=== PATIENT | male | born 1965 | race Hispanic/Latino ===

== ENCOUNTER 2018-03-13 22:51 | Emergency (ER) | payer SELFPAY ==
--- NOTE | 2018-03-13 23:40 | ED PDOC ---
HPI: General Adult Time Seen by Provider: 03/13/18 23:03 Chief Complaint (Nursing): Medical Clearance Chief Complaint (Provider): Medical Clearance History Per: Patient, Other (police) History/Exam Limitations: intoxication Additional Complaint(s): Patient presents with police for psychiatric and medical clearance for incarceration. Patient offers no medical complaints, reports no PMH or psychiatric history. He admits to drinking earlier today. Otherwise denies any trauma, injury, depression, anxiety, suicidal ideation or homicidal ideation. Past Medical History Reviewed: Historical Data, Nursing Documentation, Vital Signs Vital Signs: Last Vital Signs Temp 98.6 F 03/14/18 00:02 Pulse 68 03/14/18 00:02 Resp 16 03/14/18 00:02 BP 124/77 03/14/18 00:02 Pulse Ox 97 03/14/18 02:08 - Medical History PMH: No Chronic Diseases - Surgical History Surgical History: No Surg Hx - Family History Family History: States: Unknown Family Hx - Social History Alcohol: Occasional - Allergies Allergies/Adverse Reactions: Allergies Allergy/AdvReac Type Severity Reaction Status Date / Time No Known Allergies Allergy Verified 03/13/18 22:54 Review of Systems Review Of Systems: ROS cannot be obtained secondary to pt's inabilty to answer questions. Physical Exam - Reviewed Nursing Documentation Reviewed: Yes Vital Signs Reviewed: Yes - Physical Exam Comments: GENERAL APPEARANCE: Patient is awake, alert, oriented x 3, in no acute distress. SKIN: Warm, dry; (-) cyanosis HEAD: (-) scalp swelling, (-) scalp tenderness. EYES: (-) conjunctival pallor, (-) scleral icterus, (-) nystagmus. ENMT: Mucous membranes moist. Airway patent: (-) stridor. NECK: (-) tenderness, (-) stiffness, (-) lymphadenopathy. HEART AND CARDIOVASCULAR: (-) irregularity; (-) murmur, (-) gallop. CHEST AND RESPIRATORY: (-) rales, (-) rhonchi, (-) wheezes; breath sounds equal. ABDOMEN: Soft, (-) distention, (-) tenderness, (-) guarding. BACK: (-) tenderness. NEURO AND PSYCH: Mental status as above. Affect:normal. 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 Pupils equal and reactive; EOMI; (-) facial asymmetry; tongue and uvula midline. Strength symmetric. Walking with steady gait. - ECG O2 Sat by Pulse Oximetry: 97 (RA) Pulse Ox Interpretation: Normal Medical Decision Making Medical Decision Making: Initial Impression: Medical/psychiatric clearance for incarceration Patient has no medical complaints and has no significant PMH, his VSS. Patient medically cleared for incarceration. Patient seen and evaluated by crisis. After crisis evaluation, plan will be for outpatient psych follow up as per Dr. Shaikh. Patient is medically and psychiatrically cleared for incarceration. Disposition - Clinical Impression Clinical Impression: Medical clearance for incarceration - Patient ED Disposition Is Patient to be Admitted: No - Disposition Disposition: Discharged/Transfer to Law Enforcement Disposition Time: 00:00 Condition: STABLE Additional Instructions: Patient is medically and psychiatrically cleared for incarceration. 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
[2018-03-14 00:03] VITALS: BP 124/77; PULSE 68; RESP 16; TEMP 98.6
[2018-03-14 02:04] VITALS: O2SAT 97
== END 2018-03-14 00:30 ==
LOC: H.ER 22:51